=== PATIENT | female | born 1935 | race African-American/Black ===

== ENCOUNTER 2019-06-13 19:18 | Emergency (ER) | payer OTHER ==
[~2019-06-13] VITALS: Ht 170.2 cm; Wt 68.9 kg
[~2019-06-13 19:18] MED LIST: AMLO2.5T7; ANAS1TAB52; LOSA100T22; LOSA25TA8; METF-370; MONT10TA23; PRO AIR; THEO1CAP3
[2019-06-13 21:16] LABS: Basophils # (auto) 0 uL; Basophils % (auto) 0.5 % (0.0-2.0); Eosinophils # (auto) 0.2 uL; Eosinophils % (auto) 2.4 % (0.0-7.0); Hemoglobin 12.2 g/dL (12.2-16.2); Lymphocytes # (auto) 1.8 uL; Lymphocytes % (auto) 22.3 % (10.0-50.0); Mean Corpuscular Hemoglobin 29.6 pg (28.0-32.0); Mean Corpuscular Hgb Conc. 32.9 g/dL (32.0-36.0); Monocytes # (auto) 0.6 uL; Monocytes % (auto) 7.8 % (0.0-12.0); Neutrophils # (auto) 5.5 uL; Nucleated Red Blood Cells % 0.1 %; Platelet Count (auto) 285 10^3/uL (140-450); Red Blood Cells 4.11 10^6/uL (4.0-5.20); Red Cell Distribution Width 14.8 % (11.8-14.3); White Blood Cell 8.3 10^3/uL (4.4-10.8)
[2019-06-13 21:35] LABS: Albumin 4.5 g/dL (3.4-5.0); Calcium 10.1 mg/dL (8.5-10.1); Potassium 3.9 mmol/L (3.5-5.1)
[2019-06-13 21:36] LABS: Urine Bacteria NONE SEEN /hpf (None Seen); Urine Blood Negative /uL (Negative); Urine Hyaline Cast FEW /lpf (0 - 2); Urine Specific Gravity 1.019 (1.001-1.035); Urine WBC 9 /hpf (0 - 5)
[2019-06-13 21:40] LABS: BUN/Creatinine Ratio 17.9; Bilirubin, Total 0.3 mg/dL (0.2-1.0); Total Protein 7.6 g/dL (6.4-8.2)
[2019-06-13] MEDS ORDERED: SODIUM CHLORIDE 0.9% 500 ML IV ONE (22:00)
[2019-06-13] MEDS ORDERED: METOCLOPRAMIDE HCL 5MG/ml INJ 2ml VIAL IV ONE (22:00)
[2019-06-14 01:52] VITALS: BP 132/57
== END 2019-06-14 01:55 | disposition home or self-care (01) ==
LOC: ER 19:18
DX: K56.41 Fecal impaction (principal); J44.9 Chronic obstructive pulmonary disease, unspecified; E11.9 Type 2 diabetes mellitus without complications; I10 Essential (primary) hypertension; Z90.49 Acquired absence of other specified parts of digestive tract; Z90.710 Acquired absence of both cervix and uterus; Z88.6 Allergy status to analgesic agent; Z91.018 Allergy to other foods; Z88.5 Allergy status to narcotic agent; Z91.013 Allergy to seafood; Z88.2 Allergy status to sulfonamides; Z88.7 Allergy status to serum and vaccine; Z88.8 Allergy status to other drugs, medicaments and biological substances; Z79.899 Other long term (current) drug therapy
CPT/HCPCS: 36415; 71045; 74176; 80053; 81001; 82962; 85025; 96374; 99284; J2765; J7030; 93005

== ENCOUNTER 2021-04-30 18:08 | Emergency (ER) | payer OTHER ==
[~2021-04-30] VITALS: Ht 167.6 cm; Wt 49.9 kg
[~2021-04-30 18:08] MED LIST changes: +AMLO-483; -AMLO2.5T7; +LOSA25TA2; -LOSA25TA8
[2021-04-30] MEDS ORDERED: SODIUM CHLORIDE 0.9% 1,000 ML IV ONE (18:45)
[2021-04-30] MEDS ORDERED: SODIUM CHLORIDE 0.9% 250 ML IV ONE (18:45)
[2021-04-30] MEDS ORDERED: ACETAMINOPHEN 325 MG TAB PO ONE (18:45)
[2021-04-30 19:16] LABS: Basophils # (auto) 0 10 ^3/uL (0-0.2); Eosinophils # (auto) 0.1 10 ^3/uL (0-0.8); Lymphocytes # (auto) 1.8 10 ^3/uL (0.4-5.4); Mean Corpuscular Volume 85.6 fL (80.0-100.0); Nucleated Red Blood Cells % 0.1 %
[2021-04-30 19:17] LABS: Basophils % (auto) 0.3 % (0.0-2.0); Eosinophils % (auto) 0.8 % (0.0-7.0); Hematocrit 36.8 % (36.0-46.0); Hemoglobin 11.9 g/dL (12.2-16.2); Lymphocytes % (auto) 15.9 % (10.0-50.0); Mean Corpuscular Hemoglobin 27.8 pg (28.0-32.0); Mean Corpuscular Hgb Conc. 32.4 g/dL (32.0-36.0); Monocytes # (auto) 0.9 10 ^3/uL (0-1.3); Monocytes % (auto) 7.9 % (0.0-12.0); Neutrophils # (auto) 8.3 10 ^3/uL (1.6-8.6); Neutrophils % (auto) 75.1 % (37.0-80.0); Red Cell Distribution Width 15.2 % (11.8-14.3)
[2021-04-30 19:26] LABS: Albumin 3.6 g/dL (3.4-5.0); Calcium 9.6 mg/dL (8.5-10.1); Potassium 3.3 mmol/L (3.5-5.1)
[2021-04-30 19:32] LABS: INR 0.96 (0.9-1.15); Partial Thromboplastin Time 25.9 sec (23.6-33.0)
[2021-04-30 19:33] LABS: BUN/Creatinine Ratio 13.8; Bilirubin, Total 0.3 mg/dL (0.2-1.0); Total Protein 7.4 g/dL (6.4-8.2)
[2021-04-30] MEDS ORDERED: POTASSIUM CHL 20 Meq TABLET PO ONE (22:30)
[2021-04-30 22:39] LABS: Urine Bacteria FEW /hpf (None Seen); Urine Blood 1+ /uL (Negative); Urine Hyaline Cast MOD /lpf (0 - 2); Urine Mucus FEW (None Seen); Urine Specific Gravity 1.027 (1.001-1.035); Urine WBC 3 /hpf (0 - 5)
[2021-05-01] MEDS ORDERED: ALBUTEROL SULF 2.5 MG/0.5ML(0.5%) NEB SOLN NEB ONE (00:30)
[2021-05-01] MEDS ORDERED: LORazepam 2MG/ML-1ML VIAL IV ONE ×2 (01:30→01:45)
[2021-05-01 03:04] VITALS: BP 134/74
== END 2021-05-01 02:59 | disposition home or self-care (01) ==
LOC: ER 18:09
DX: G44.209 Tension-type headache, unspecified, not intractable (principal); R42 Dizziness and giddiness; J44.9 Chronic obstructive pulmonary disease, unspecified; E11.9 Type 2 diabetes mellitus without complications; I10 Essential (primary) hypertension; Z90.49 Acquired absence of other specified parts of digestive tract; Z90.710 Acquired absence of both cervix and uterus; Z88.5 Allergy status to narcotic agent; Z88.6 Allergy status to analgesic agent; Z88.8 Allergy status to other drugs, medicaments and biological substances
CPT/HCPCS: 36415; 70450; 71045; 74176; 80053; 81001; 83735; 84484; 85025; 85610; 85730; 93005; 96361; 96374; 99285; J2060; J7030